=== PATIENT | female | born 1990 | race Caucasian/White ===

== ENCOUNTER 2018-06-26 06:48 | Day surgery (SDC) | payer OTHER ==
[2018-06-26] MEDS ORDERED: LACTATED RINGER'S 1,000 ML IV (08:00)
[2018-06-26] MEDS ORDERED: LIDOCAINE 1%/EPI 30 ML INJ (09:09)
[2018-06-26] MEDS ORDERED: BUPIVACAINE 0.25% (MPF) 30 ML INJ (09:09)
[2018-06-26] MEDS ORDERED: MIDAZOLAM 1 MG/ML 2 ML INJ (09:29)
[2018-06-26] MEDS ORDERED: FENTAnyl 50 MCG/ML VIAL IV ×3 (09:30)
[2018-06-26] MEDS ORDERED: MIDAZOLAM 1 MG/ML 2 ML INJ IV (09:30)
[2018-06-26] MEDS ORDERED: ONDANSETRON 4 MG INJ IV ×2 (09:30→10:00)
[2018-06-26] MEDS ORDERED: OXYCODONE/ACETAMINOPHEN (5/325) TAB PO ×4 (09:30→10:00)
[2018-06-26] MEDS ORDERED: METOCLOPRAMIDE 10 MG INJ IV (09:30)
[2018-06-26] MEDS ORDERED: MEPERIDINE 25 MG INJ IV (09:30)
[2018-06-26] MEDS ORDERED: DIPHENHYDRAMINE 50 MG INJ IV (09:30)
[2018-06-26] MEDS: LIDOCAINE 2% (MDV) 20 ML INJ (09:39)
[2018-06-26] MEDS ORDERED: morphine 2 MG INJ IV (10:00)
== END 2018-06-26 11:11 | disposition home or self-care (01) ==
LOC: SDS 06:48
DX: D18.01 Hemangioma of skin and subcutaneous tissue (principal)
CPT/HCPCS: 11403; 88305